=== PATIENT | female | born 1945 | race Caucasian/White ===

== ENCOUNTER 2024-06-21 15:51 | Emergency (ER) | payer MEDICARE, OTHER, SELFPAY ==
[2024-06-21 15:54] VITALS: BP 156/74; PULSE 108; RESP 16; TEMP 36.6; O2SAT 99; BMI 22.3
== END 2024-06-21 16:57 | disposition left against medical advice (07) ==
PROVIDERS: Emergency Provider Emergency Medicine; Family Provider Family Medicine; PCP Family Medicine
DX: D69.3 Immune thrombocytopenic purpura (principal)
CPT/HCPCS: 99281